=== PATIENT | female | born 1960 ===

== ENCOUNTER 2018-01-18 09:40 | Outpatient (CLI) | payer OTHER ==
[~2018-01-18 09:40] MED LIST: BONINE25 MG PO; ZOCOR5 MG PO
== END 2018-01-18 12:12 | disposition home or self-care (01) ==
LOC: LAB 09:40
DX: Z76.89 Persons encountering health services in other specified circumstances (principal)

== ENCOUNTER 2021-06-21 11:18 | Outpatient (CLI) | payer OTHER | END 2021-06-21 11:31 | disposition home or self-care (01) | LOC: RAD 11:18 | PROVIDERS: ATTEND Orthopaedic Surgery | DX: M17.11 Unilateral primary osteoarthritis, right knee (principal) ==

== ENCOUNTER → 2022-03-30 09:15 | Outpatient (CLI) | payer OTHER | END | disposition home or self-care (01) | LOC: LAB 09:15 | PROVIDERS: ATTEND Orthopaedic Surgery | DX: D64.9 Anemia, unspecified (principal); E88.9 Metabolic disorder, unspecified; D68.8 Other specified coagulation defects; N39.0 Urinary tract infection, site not specified; A49.02 Methicillin resistant Staphylococcus aureus infection, unspecified site; E11.9 Type 2 diabetes mellitus without complications; Z76.89 Persons encountering health services in other specified circumstances; I10 Essential (primary) hypertension; I49.9 Cardiac arrhythmia, unspecified ==

== ENCOUNTER 2022-03-30 16:05 | Inpatient (IN) | payer OTHER ==
[~2022-03-30] VITALS: Ht 162.6 cm; Wt 65.8 kg
[2022-04-05] MEDS ORDERED: [UNRECOGNIZED DRUG - OTHER] PO (14:37)
[2022-04-11] MEDS ORDERED: CELECOXIB200 MG (16:01)
[2022-04-11] MEDS ORDERED: SIMVASTATIN10 MG (16:01)
[2022-04-11] MEDS ORDERED: NABUMETONE750 MG (16:01)
[2022-04-11] MEDS ORDERED: XARELTO10 M1 (16:01)
[2022-04-11] MEDS ORDERED: DICLOFENAC SOD100 GM (16:01)
[2022-04-11] MEDS ORDERED: OPTIMAL D3 M350 MCG (16:01)
[2022-04-11] MEDS ORDERED: GABAPENTIN100 M2 (16:01)
[2022-04-11] MEDS ORDERED: DICLOFENAC POTA50 MG (16:01)
== END 2022-04-13 22:47 | disposition home or self-care (01) | DRG 470 ==
LOC: SURG 04-11 07:00 → O/R 04-11 10:15 → SURH 04-11 10:15
PROVIDERS: ADMIT Orthopaedic Surgery; ATTEND Orthopaedic Surgery
PROC: 0SRD0J9 Replacement of Left Knee Joint with Synthetic Substitute, Cemented, Open Approach (ICD-10-PCS; principal; 2022-04-11 07:00)
DX: M17.12 Unilateral primary osteoarthritis, left knee (principal); Z96.652 Presence of left artificial knee joint; Z20.822 Contact with and (suspected) exposure to COVID-19

== ENCOUNTER → 2022-10-18 11:16 | Outpatient (CLI) | payer OTHER ==
[~2022-10-18 11:16] MED LIST changes: +CELECOXIB200 MG; +DICLOFENAC POTA50 MG; +DICLOFENAC SOD100 GM; +GABAPENTIN100 M2; +NABUMETONE750 MG; +OPTIMAL D3 M350 MCG; +SIMVASTATIN10 MG; +XARELTO10 M1; +[UNRECOGNIZED DRUG - OTHER] PO
== END | disposition home or self-care (01) ==
LOC: LAB 11:16
PROVIDERS: ATTEND Orthopaedic Surgery
DX: E55.9 Vitamin D deficiency, unspecified (principal); M85.9 Disorder of bone density and structure, unspecified; E56.1 Deficiency of vitamin K

== ENCOUNTER → 2023-10-16 09:53 | Outpatient (CLI) | payer OTHER ==
[2023-10-16 11:28] LABS: BILIRUBIN TOTAL 0.64 mg/dL (0.3-1.2); CALCIUM 9.5 mg/dL (8.5-10.1); CREATININE SERUM 0.74 mg/dL (0.55-1.02); GFR 79.78; GLOBULINA 2.8 G/DL (2.4-3.5); MAGNESIUM 2.2 mg/dL (1.8-2.4); PHOSPHOROUS 3.8 mg/dL (2.5-4.9); POTASSIUM 4.45 mEq/L (3.5-5.1); TOTAL PROTEIN 6.8 gm/dL (6.4-8.2)
[2023-10-17 16:07] LABS: CALCIUM IONIZED 5.2 mg/dL (4.5-5.6)
== END | disposition home or self-care (01) ==
LOC: LAB 09:53
PROVIDERS: ATTEND Orthopaedic Surgery
DX: E55.9 Vitamin D deficiency, unspecified (principal); M85.9 Disorder of bone density and structure, unspecified; E56.1 Deficiency of vitamin K; E21.3 Hyperparathyroidism, unspecified; E88.89 Other specified metabolic disorders; M81.8 Other osteoporosis without current pathological fracture

== ENCOUNTER 2023-11-26 13:10 | Outpatient (CLI) | payer OTHER | END 2023-11-26 13:21 | disposition home or self-care (01) | LOC: RAD 13:10 | PROVIDERS: ATTEND Orthopaedic Surgery | DX: M25.551 Pain in right hip (principal); M17.11 Unilateral primary osteoarthritis, right knee; M51.34 Other intervertebral disc degeneration, thoracic region; M47.812 Spondylosis without myelopathy or radiculopathy, cervical region; M51.37 Other intervertebral disc degeneration, lumbosacral region; M47.817 Spondylosis without myelopathy or radiculopathy, lumbosacral region; M16.0 Bilateral primary osteoarthritis of hip ==